=== PATIENT | female | born 1980 | race Asian ===

== ENCOUNTER 2018-06-26 14:34 | Emergency (ER) | payer MEDICAID ==
[~2018-06-26] VITALS: Ht 157.5 cm; Wt 62.3 kg
[2018-06-26 14:43] VITALS: Ht 157.5 cm; Wt 62.3 kg
[2018-06-26 17:35] LABS: BASOPHIL % 0.6 % (0-2); PLATELET COUNT 269 x10^3mcL (130-400); RED CELL DISTRIBUTION WIDTH 12.2 % (11.5-14.5)
[2018-06-26 17:51] LABS: CARBON DIOXIDE 26.9 mmol/L (21-32); CHLORIDE SERUM 100 mmol/L (98-107); CREATININE SERUM 0.8 mg/dL (0.6-1.0); GFR1 > 60 mL/min; GLUCOSE SERUM 80 mg/dL (74-106); POTASSIUM SERUM 3.7 mmol/L (3.5-5.1); SODIUM SERUM 136 mmol/L (136-145)
[2018-06-26 17:55] LABS: ALBUMIN 3.6 g/dL (3.4-5.0); ALKALINE PHOSPHATASE 51 U/L (46-116); ALT/SGPT 26 U/L (14-59); AST/SGOT 23 U/L (15-37); BILIRUBIN TOTAL 0.2 mg/dL (0.20-1.00); TOTAL PROTEIN, SERUM 7.8 g/dL (6.4-8.2)
[2018-06-26 19:20] LABS: microscopic required? NO
[2018-06-26 19:38] LABS: urine erythrocyte NEGATIVE (NEGATIVE)
[2018-06-26 20:04] VITALS: BP 112/79
== END 2018-06-26 20:04 | disposition home or self-care (01) ==
LOC: ED 14:34
PROVIDERS: Emergency Medicine
DX: O20.0 Threatened abortion (principal)
CPT/HCPCS: 36415